=== PATIENT | male | born 1985 | race Two or more races ===

== ENCOUNTER → 2024-09-20 | Outpatient (BNVA) | payer BC, SELFPAY | END | disposition home or self-care (01) | PROVIDERS: PCP Nurse Practitioner Family; Referring Provider Nurse Practitioner Family; Visit Provider Nurse Practitioner Family | DX: Z76.89 Persons encountering health services in other specified circumstances (principal); J02.9 Acute pharyngitis, unspecified; R42 Dizziness and giddiness | CPT/HCPCS: 87804; 87811; 99212 ==

== ENCOUNTER → 2025-08-09 | Outpatient (BNVA) | payer BC, SELFPAY | END | disposition home or self-care (01) | PROVIDERS: PCP Nurse Practitioner Family; Referring Provider Nurse Practitioner Family; Visit Provider Nurse Practitioner Family | DX: R19.7 Diarrhea, unspecified (principal); R10.9 Unspecified abdominal pain; Z28.21 Immunization not carried out because of patient refusal | CPT/HCPCS: 87804; 87811; 99212 ==